=== PATIENT | female | born 1960 | race Caucasian/White ===

== ENCOUNTER → 2023-11-23 12:47 | Outpatient (REF) | payer OTHER, SELFPAY | LOC: HWRAD 12:47 | PROVIDERS: ATTENDING PHYSICIAN Internal Medicine Rheumatology; FAMILY PHYSICIAN Nurse Practitioner; REFERRING PHYSICIAN Chiropractor | DX: M81.0 Age-related osteoporosis without current pathological fracture (principal) | CPT/HCPCS: 77080 ==

== ENCOUNTER → 2023-12-11 12:44 | Outpatient (REF) | payer OTHER, SELFPAY | LOC: HWRAD 12:44 | PROVIDERS: ATTENDING PHYSICIAN Internal Medicine Rheumatology; FAMILY PHYSICIAN Nurse Practitioner; REFERRING PHYSICIAN Chiropractor | DX: M54.2 Cervicalgia (principal) | CPT/HCPCS: 72050 ==

== ENCOUNTER → 2024-02-13 06:27 | Day surgery (SDC) | payer OTHER, SELFPAY | LOC: GI 06:27 | PROVIDERS: ATTENDING PHYSICIAN Internal Medicine Gastroenterology | DX: D12.2 Benign neoplasm of ascending colon (principal); K57.30 Diverticulosis of large intestine without perforation or abscess without bleeding; D12.8 Benign neoplasm of rectum; K22.89 Other specified disease of esophagus; K44.9 Diaphragmatic hernia without obstruction or gangrene; K21.00 Gastro-esophageal reflux disease with esophagitis, without bleeding; K21.9 Gastro-esophageal reflux disease without esophagitis; Z86.010 Personal history of colon polyps | CPT/HCPCS: 45385; 45380; 43239; 88305 ==

== ENCOUNTER → 2024-02-29 13:21 | Outpatient (REF) | payer OTHER, SELFPAY | LOC: WDC 13:21 | PROVIDERS: ATTENDING PHYSICIAN Obstetrics & Gynecology Gynecology; FAMILY PHYSICIAN Nurse Practitioner | DX: Z12.31 Encounter for screening mammogram for malignant neoplasm of breast (principal) | CPT/HCPCS: 77063; 77067 ==

== ENCOUNTER 2024-03-02 16:29 | Emergency (ER) | payer OTHER, SELFPAY ==
[2024-03-02 16:33] VITALS: BP 130/90
--- NOTE | 2024-03-02 18:04 | ED.GENMED ---
History of Present Illness
General
Chief Complaint: Musculo-Skeletal Complaint
Source: patient
Exam Limitations: none
Time Seen by Provider: 03/02/24 17:52
History of Present Illness
History of Present Illness:
This is a 63 year old female that comes in with c/o right sided neck pain. States that she awoke with pain behind the ear that went down into her neck and shoulder. States that this is a muscle spasm. States that this started at 6am and she took
Meloxicam and tried message but nothing helped. States that she also had an ear discomfort that was not really bad for the past 3 days. States that she also recently had an MRI of the brain last week and was told that there are calcifications on the
right temporal area that she needs to have a CT with and without contrast for. States that she has a headache and burning in her stomach. Denies any falls or injury. denies any fever, chills, chest pain, SOB, vomiting, diarrhea, dizziness, urinary
burning.
Past History
Past History
ED Past Medical History: Asthma and Other (Neck and back pain, Sciatica, POTS, Barretts esophagus, Evi Danlos syndrome)
ED Past Surgical History: , Gynecological (Hysterectomy), Orthopedic (Bilateral knee cystectomy) and Other (Abdominoplasty, Lipo back and hips, facial lift, reconstruction abd surgery, )
Social History
Tobacco: Non-smoker
Alcohol: Occasional
Personal:
Living: with family
Review of Systems
Review of Systems
All Other Systems: ROS reviewed and negative except as documented in HPI and ROS
Constitutional: Reports no symptoms; Denies fever or chills
EENT: Reports no symptoms
Respiratory: Reports no symptoms; Denies cough or trouble breathing
Cardiac: Reports no symptoms; Denies chest pain
ABD/GI: Reports abdominal pain (burning) and nausea; Denies vomiting or diarrhea
: Reports no symptoms; Denies dysuria, frequency or urgency
Musculoskeletal: Reports neck pain (right sided down into shoulder)
Skin: Reports no symptoms
Neurological: Reports headache; Denies dizzy
Psychiatric: Reports no symptoms
Phy Exam
General Physical Exam
General Presentation: mild distress
General age: appears stated age
General Skin: warm and dry
General Habitus: normal
General Mental: alert
General Hydration: dry mucous membranes
ENT Exam
ENT Exam: TM's normal, pharynx normal and neck supple
Eye Exam
Eye Exam: EOMI
Cardiovascular Exam
Cardiovascular Exam: regular rate/rhythm, no edema, no murmur and normal peripheral pulses
Pulmonary Exam
Pulmonary Exam: lungs clear, no respiratory distress, no rales, chest non tender, no crackles, no rhonchi, no wheezing and no cough
Musculoskeletal Exam
Musculoskeletal Exam: full ROM, no edema and other (Patient able to turn head side to side but c/o muscle spasm on the right side worse when turning to the right)
Skin Exam
Skin Exam: normal color, warm/dry, no rash and no petechia
Psychiatric Exam
Psychiatric Exam: normal mood/affect
Course
Orders/Labs/Results
Orders:
Orders
03/02/24 18:02
Ketorolac [Toradol] 30 mg IV NOW STA
03/02/24 18:03
Acetaminophen [Tylenol] 1,000 mg PO NOW STA
03/02/24 18:04
Dexamethasone Sod Phosphate [Decadron] 10 mg IV NOW STA
03/02/24 18:07
Ondansetron Injectable [Zofran] 4 mg IV NOW STA
03/02/24 18:14
Diazepam 5 mg PO NOW STA
03/02/24 19:06
Cyclobenzaprine HCl [Flexeril] 10 mg PO NOW STA
Vital Signs
Initial and Last Documented VS:
Initial Vital Signs
Temp Pulse Resp BP Pulse Ox
97.6 F 67 16 130/90 98
03/02/24 16:33 03/02/24 16:33 03/02/24 16:33 03/02/24 16:33 03/02/24 16:33
Last Documented Vital Signs
Temp Pulse Resp BP Pulse Ox
97.6 F 67 16 130/90 98
03/02/24 16:33 03/02/24 16:33 03/02/24 16:33 03/02/24 16:33 03/02/24 16:33
MDM/Problems Addressed
Differential Diagnosis Includes:
Muscle spasm.
MDM/Problems Addressed:
This is a 63 year old female that comes in with c/o right sided neck pain that started with waking this morning. States that she tried message and Meloxicam with no relief. Patient did not have any falls or injury. States that she does have a fan on
at night but she turns it off.
Will medicate for pain and recheck.
Back into see patient. Patient states that she feels a little better but when the spasm comes it just maker her cry. Will further medicated with Flexeril.
back into see patient. Patient states that she is feeling much better and is smiling. Will give patient a prescription for Flexeril. Patient can alternate with Ibuprofen and Tylenol, Heat or ice to the neck which ever makes her feel better. Follow
up with the family doctor. Return with any concerns .
Chronic conditions affecting care:
Chronic back and neck pain
Acute Exacerbation and/or Progression of Chronic Illness:
Neck pains
*Pulse Oximetry
Patient hypoxic: no
*EKG
Interpreted by ED Provider?: NA
Rate: EKG- N/A
*Pharmacist Intern Interpretation
Rate: Pharmacist Intern- N/A
*Critical Care Note
Total Time (30-74mins, 75-104mins- exclusive of procedures): Not Applicable
ED Attending Note
-
Portions of this chart may have been created with voice recognition software.� Occasional wrong word or��sound alike� substitutions may have occurred due to the inherent limitations of voice recognition software.
Discharge Plan
Departure
Patient Disposition: Home (Routine Discharge)
Date of Disposition: 03/02/24
Time of Disposition: :22
Patient with high blood pressure during this ER visit?: Yes
Condition: Good
Covid-19: Not Applicable
Discharge Problem:
Muscle spasms of neck
Instructions: Muscle Spasm ED, BLOOD PRESSURE
Prescriptions:
New
cyclobenzaprine 10 mg tablet
10 mg PO BID PRN (Reason: Muscle spasm) Qty: 10 0RF
No Action
hydrochlorothiazide 25 MG tablet
25 mg PO PRN PRN (Reason: swelling)
diphenhydramine-acetaminophen [Excedrin PM] 1 TAB tablet
0.5 tab PO PRN PRN (Reason: sleep)
fluticasone propionate 1 SPRAY spray,suspension
1 spray intranasal PRN PRN (Reason: allergies)
Vitamin B12
1 dose SC MONTHLY
hydrocodone-acetaminophen 1 TABLET tablet
2 tab PO Q4HPRN PRN (Reason: moderate to severe pain) 0RF
hydrocodone-acetaminophen 1 TABLET tablet
1 tab PO Q4HPRN PRN (Reason: mild reason) 0RF
cefdinir [Omnicef] 300 MG capsule
300 mg PO BID 5 Days Qty: 10 0RF
ferrous sulfate [Feosol] 325 MG tablet
325 mg PO TID 30 Days Qty: 90 0RF
gabapentin [Gabarone] 300 MG tablet
300 mg PO BID Qty: 60 0RF
gabapentin 300 MG capsule
300 mg PO BID 14 Days Qty: 60 0RF
Referrals:
Kelsie Asher CRNP [Family Provider] - Call in 1-3 days for appt
Activity Restrictions/Additional Instructions:
As discussed, this will just take time to improve. You have had a prescription for Flexeril sent to your Pharmacy. This will help relax the muscle. Please use at bedtime as this will help the muscle to relax and heal. This will make you tired.
Please no driving or alcohol when taking. You may also use Ibuprofen 600mg every 6 hours for pain with food and Tylenol 1000mg every 6 hours for pain. You may use heat or ice which ever makes you feel better. Follow up with the family doctor for
recheck. IF YOU HAVE ANY OTHER CONCERNS PLEASE RETURN TO THE EMERGENCY ROOM.
Interventions
Interventions:
*General Assessment Last Done: 03/02/24 16:33
*ED COVID-19 Vaccine History Last Done: 03/02/24 16:33
Discharge Date and Time
Print Language: TRINIDADIAN
[2024-03-02] MEDS: TORADOL 30 MG IV (18:20)
[2024-03-02] MEDS: ZOFRAN 4 MG IV (18:21)
[2024-03-02] MEDS: DECADRON 10 MG IV (18:21)
[2024-03-02] MEDS: TYLENOL 1000 MG PO (18:22)
[2024-03-02] MEDS: DIAZEPAM 5 MG PO (18:28)
[2024-03-02] MEDS: FLEXERIL 10 MG PO (19:37)
[2024-03-02 20:24] VITALS: BP 143/82
== END 2024-03-02 20:30 | disposition home or self-care (01) ==
LOC: EMR 16:29
PROVIDERS: EMERGENCY PHYSICIAN Emergency Medicine; FAMILY PHYSICIAN Nurse Practitioner
DX: R25.2 Cramp and spasm (principal); R03.0 Elevated blood-pressure reading, without diagnosis of hypertension
CPT/HCPCS: 99284; 96374; 96375 ×2

== ENCOUNTER → 2024-03-11 13:55 | Outpatient (REF) | payer OTHER, SELFPAY | LOC: RAD 13:55 | PROVIDERS: ATTENDING PHYSICIAN Specialist; FAMILY PHYSICIAN Nurse Practitioner | DX: R94.02 Abnormal brain scan (principal); R56.9 Unspecified convulsions | CPT/HCPCS: 70470; Q9967 ==

== ENCOUNTER 2024-08-11 12:32 | Emergency (ER) | payer OTHER, SELFPAY ==
[2024-08-11 13:09] LABS: % Eosinophils 1.7 % (0-6); % Immature Granulocytes 0.2 % (0-0.5); % Lymphocytes 29.7 % (20.5-51.1); % Monocytes 7.2 % (1.7-9.3); % Neutrophils 60.2 % (42.2-75.2); Absolute Basophils 0.1 10^3/uL (0-0.2); Absolute Eosinophils 0.1 10^3/uL (0-0.7); Absolute Lymphocytes 1.7 10^3/uL (1.2-3.4); Absolute Monocytes 0.4 10^3/uL (0.1-0.6); Absolute Neutrophils 3.5 10^3/uL (1.4-6.5); Hematocrit 41.8 % (37.0-47.0); Hemoglobin 13.5 g/dL (12.0-16.0); Mean Corp Hgb Conc. 32.3 g/dL (33.0-37.0); Mean Corpuscular Hgb 28.4 pg (27.0-31.0); Mean Corpuscular Volume 87.8 fL (81.0-99.0); Mean Platelet Volume 9.2 fL (7.4-10.4); Nucleated Red Blood Cells % 0 %; Platelet Count 275 10^3/uL (130-400); Red Blood Cell Count 4.76 10^6/uL (4.20-5.40); Red Cell Dist. Width 13.1 % (11.5-14.5); White Blood Cell Count 5.7 10^3/uL (4.8-10.8)
[2024-08-11 13:20] LABS: ALT (SGPT) 20 U/L (0-35); AST (SGOT) 25 U/L (14-36); Alkaline Phosphatase 82 U/L (38-126); Blood Urea Nitrogen 25 mg/dl (7-17); Calcium 9.2 mg/dl (8.4-10.2); Carbon Dioxide 31 mmol/L (22-30); Chloride 106 mmol/L (98-107); Glucose 94 mg/dl (70-99); Potassium 4.5 mmol/L (3.5-5.1); Sodium 142 mmol/L (135-145); Total Bilirubin 0.3 mg/dl (0.2-1.3); Total Protein 6.5 g/dl (6.3-8.2); eGFR > 60.00
--- NOTE | 2024-08-11 15:51 | ED.GENMED ---
History of Present Illness
General
Chief Complaint: Blood Pressure Problem
Source: patient
Exam Limitations: none
Time Seen by Provider: 08/11/24 15:50
Nursing documentation reviewed up to this point in time: agreed with
History of Present Illness
History of Present Illness:
Patient is a 64-year-old female past medical history of POTS Evi-Danlos, mast cell activation syndrome presents to the ER for evaluation. She reports normally her blood pressure is low . She has had high blood pressure for the past 1 week. Her
dentist first notified her of her elevated blood pressure in addition she reports she has had intermittent headaches over the past week and yesterday her headache was so bad that she was in her bed throughout the day. For her POTS/airless Danlos
she is followed by a convertible power shovel operator, DR Love at [place]. She is on propranolol 20 mg 3 times daily, as well as midodrine 5 mg 3 times daily and Naltrexone for [place].
She denies any associated blurry vision neck pain fever chills. She does report headache is all over including the back of her head. She denies any chest pain shortness of breath.
She denies any dizziness vertigo spinning sensation. She denies any upper or lower extremity numbness [place] weakness. She denies any trauma. She denies any fever chills.
Past History
Past History
ED Past Medical History: Asthma and Other (Neck and back pain, Sciatica, POTS, Barretts esophagus, Evi Danlos syndrome)
ED Past Surgical History: , Gynecological (Hysterectomy), Orthopedic (Bilateral knee cystectomy) and Other (Abdominoplasty, Lipo back and hips, facial lift, reconstruction abd surgery, )
Social History
Tobacco: Non-smoker
Alcohol: Occasional
Personal:
Living: with family
Review of Systems
Review of Systems
Allergies reviewed?: Yes
Other source history: family
All Other Systems: ROS reviewed and negative except as documented in HPI and ROS
Constitutional: Reports no symptoms; Denies fever, fatigue or chills
EENT: Reports no symptoms
Respiratory: Reports no symptoms; Denies trouble breathing
Cardiac: Reports no symptoms; Denies chest pain or palpitations
ABD/GI: Reports no symptoms; Denies nausea or vomiting
Musculoskeletal: Reports no symptoms
Skin: Reports no symptoms
Neurological: Reports headache; Denies dizzy or numbness
Hematologic/Lymphatic: Reports no symptoms
Psychiatric: Reports no symptoms
Phy Exam
General Physical Exam
General Presentation: no apparent distress
General age: appears stated age
General Skin: warm and dry
General Habitus: normal
General Mental: alert
General Hydration: appears well hydrated
ENT Exam
ENT Exam: neck supple
Cardiovascular Exam
Cardiovascular Exam: regular rate/rhythm, no murmur and normal peripheral pulses
Pulmonary Exam
Pulmonary Exam: lungs clear and no respiratory distress
Neurological Exam
Neurological Exam: alert and oriented x3
Musculoskeletal Exam
Musculoskeletal Exam: full ROM
Skin Exam
Skin Exam: normal color and warm/dry
Psychiatric Exam
Psychiatric Exam: normal mood/affect
Course
Orders/Labs/Results
Orders:
Orders
08/11/24 13:01
CMP [Comprehensive Metabolic Panel] Urgent
Complete Blood Count/With Diff Urgent
08/11/24 16:20
Electrocardiogram (*1) Stat
Reason for Study: Other
Other Reason for Exam: chest pain
Cardiac Monitoring- Treatment ONCE
EKG- Treatment ONCE
08/11/24 16:30
CT Head W/o Iv Contrast Urgent
Comment:
Reason For Exam: headache/elevated bp hx of evi danlos
Abnormal Lab Results
08/11/24
13:01
MCHC 32.3 L g/dL
(33.0-37.0)
Carbon Dioxide 31 H mmol/L
(22-30)
BUN 25 H mg/dl
(7-17)
08/11/24 13:01
08/11/24 13:01
Vital Signs
Initial and Last Documented VS:
Initial Vital Signs
Temp Pulse Resp Pulse Ox
98.3 F 63 16 99
08/11/24 12:50 08/11/24 12:50 08/11/24 12:50 08/11/24 12:50
Last Documented Vital Signs
Temp Pulse Resp BP Pulse Ox
98.3 F 71 17 186/91 98
08/11/24 12:50 08/11/24 18:00 08/11/24 18:00 08/11/24 18:00 08/11/24 18:00
Controls Design Engineer consulted with Physician
Controls Design Engineer consulted with physician?: Yes
Name of Physician Consulted: Dr Baker
MDM/Problems Addressed
Differential Diagnosis Includes:
Not limited to hypertension, less likely intracranial hemorrhage
MDM/Problems Addressed:
as documented patient is a 64-year-old female with a history of Evi Danlos and POTS on propranolol and midodrine prescribed her convertible power shovel operator at [place]. She has had high blood pressure for the past week associate with headache. She presents
awake alert no acute distress nontoxic neurologically intact she has a known mass on her CAT scan of her head which she is aware of and this again is visualized and without significant change. There is no other acute intracranial abnormality.
Patient's creatinine is normal her BUN is minimally elevated. Will check TSH. Patient afebrile no acute distress no recent URI symptoms no meningismus no other neurological complaints
Case reviewed with ED physician patient given Tylenol for headache she remains nontoxic will have her stop midodrine continue her propranolol and close follow-up with convertible power shovel operator for reevaluation and possible treatment of blood pressure
*Critical Care Note
Total Time (30-74mins, 75-104mins- exclusive of procedures): Not Applicable
ED Attending Note
-
Portions of this chart may have been created with voice recognition software.� Occasional wrong word or��sound alike� substitutions may have occurred due to the inherent limitations of voice recognition software.
Discharge Plan
Departure
Patient Disposition: Home (Routine Discharge)
Date of Disposition: 08/11/24
Time of Disposition: 19:18
Patient with high blood pressure during this ER visit?: Yes
Covid-19: Not Applicable
Discharge Problem:
HBP (high blood pressure), Headache
Instructions: High Blood Pressure (DC), Headache, Adult ED
Prescriptions:
No Action
hydrochlorothiazide 25 MG tablet
25 mg PO PRN PRN (Reason: swelling)
diphenhydramine-acetaminophen [Excedrin PM] 1 TAB tablet
0.5 tab PO PRN PRN (Reason: sleep)
fluticasone propionate 1 SPRAY spray,suspension
1 spray intranasal PRN PRN (Reason: allergies)
Vitamin B12
1 dose SC MONTHLY
hydrocodone-acetaminophen 1 TABLET tablet
2 tab PO Q4HPRN PRN (Reason: moderate to severe pain) 0RF
hydrocodone-acetaminophen 1 TABLET tablet
1 tab PO Q4HPRN PRN (Reason: mild reason) 0RF
cefdinir [Omnicef] 300 MG capsule
300 mg PO BID 5 Days Qty: 10 0RF
ferrous sulfate [Feosol] 325 MG tablet
325 mg PO TID 30 Days Qty: 90 0RF
gabapentin [Gabarone] 300 MG tablet
300 mg PO BID Qty: 60 0RF
gabapentin 300 MG capsule
300 mg PO BID 14 Days Qty: 60 0RF
cyclobenzaprine 10 mg tablet
10 mg PO BID PRN (Reason: Muscle spasm) Qty: 10 0RF
Referrals:
UNKNOWN - PT DOES,NOT KNOW [Family Provider] -
Activity Restrictions/Additional Instructions:
Follow-up with your convertible power shovel operator for further reevaluation of your elevated blood pressure. As discussed stop midodrine continue your other medications and return if any worsening of symptoms
Interventions
Interventions:
*Risk Screen - Suicide Last Done: 08/11/24 12:50
*General Assessment Last Done: 08/11/24 16:09
*Neglect/Abuse Screening Last Done: 08/11/24 12:50
ED- Fall Risk Assessment Last Done: 08/11/24 16:14
*ED COVID-19 Vaccine History Last Done: 08/11/24 16:09
ED- Cardiac Assessment Last Done: 08/11/24 16:14
ED- Neurological Assessment Last Done: 08/11/24 16:14
ED- Pulmonary Assessment Last Done: 08/11/24 16:14
Discharge Date and Time
Print Language: THAI
[2024-08-11 16:08] VITALS: BP 180/94; BMI 27.1
[2024-08-11 16:13] VITALS: BP 180/94
[2024-08-11 17:00] VITALS: BP 170/87
[2024-08-11 18:00] VITALS: BP 186/91
[2024-08-11 19:00] VITALS: BP 170/91
[2024-08-11] MEDS: TYLENOL 650 MG PO (19:53)
[2024-08-11 19:55] VITALS: BP 185/88
[2024-08-11 20:52] LABS: TSH Reflex To Free T4 0.74 uIU/ml (0.47-4.68)
== END 2024-08-11 20:02 | disposition home or self-care (01) ==
LOC: EMR 12:32
PROVIDERS: Emergency Medicine; EMERGENCY PHYSICIAN Emergency Medicine
DX: R03.0 Elevated blood-pressure reading, without diagnosis of hypertension (principal); R51.9 Headache, unspecified; G90.A Postural orthostatic tachycardia syndrome [POTS]; Q79.60 Ehlers-Danlos syndrome, unspecified; D89.40 Mast cell activation, unspecified; J45.909 Unspecified asthma, uncomplicated; Z87.19 Personal history of other diseases of the digestive system; Z90.710 Acquired absence of both cervix and uterus
CPT/HCPCS: 99284; 70450; 80053; 84443; 85025; 93005

== ENCOUNTER → 2025-03-05 13:29 | Outpatient (REF) | payer OTHER, SELFPAY | LOC: WDC 13:29 | PROVIDERS: ATTENDING PHYSICIAN Obstetrics & Gynecology Gynecology | DX: Z12.31 Encounter for screening mammogram for malignant neoplasm of breast (principal) | CPT/HCPCS: 77063; 77067 ==